=== PATIENT | female | born 1955 | race Caucasian/White ===

== ENCOUNTER 2018-12-14 16:32 | Emergency (ER) | payer OTHER ==
[~2018-12-14] VITALS: Ht 160 cm; Wt 84.8 kg
[~2018-12-14 16:32] MED LIST: TYLENOL-CODEINE1 TAB PO
[2018-12-14] MEDS ORDERED: COZAAR50 MG (17:02)
== END 2018-12-15 09:48 | disposition home or self-care (01) ==
LOC: ER 16:32
DX: M79.662 Pain in left lower leg (principal)